=== PATIENT | male | born 1995 | race African-American/Black ===

== ENCOUNTER 2018-07-15 11:42 | Emergency (ER) | payer SELFPAY ==
[2018-07-15 11:48] VITALS: BP 115/65
--- NOTE | 2018-07-15 12:15 | ER Document Report ---
ED General - General Chief Complaint: Headache Stated Complaint: HEADACHE Time Seen by Provider: 07/15/18 12:06 Notes: Patient is a 22-year-old male with history of migraines that presents to the emergency department for chief complaint of headache. Patient states that while he was at work this morning, he started developing a bilateral frontal headache, that he rates as a 6 out of 10. He states he has a history of migraines, and this is similar to prior migraines in the past. He usually takes Motrin for his headaches, he did not take any medication prior to ED arrival. He denies noting any nausea, vomiting, abdominal pain, blurred vision , numbness, tingling or weakness in any extremity. Denies any other complaints at this time. Past Medical History: Migraines Past Surgical History: Hernia repair Social History: Admits to smoking cigarettes daily, denies alcohol or drug use Family History: Reviewed and noncontributory for presenting illness Allergies: Reviewed, see documented allergy list. REVIEW OF SYSTEMS: Other than noted above, the 12 point review of systems was reviewed with the patient and were negative, all pertinent findings are included in the HPI. PHYSICAL EXAMINATION: Vital signs reviewed, nursing noted reviewed. GENERAL: Well-appearing, well-nourished and in no acute distress. HEAD: Atraumatic, normocephalic. EYES: Eyes appear normal, extraocular movements intact, sclera anicteric, conjunctiva are normal. ENT: nares patent, oropharynx clear without exudates. Moist mucous membranes. NECK: Normal range of motion, supple without lymphadenopathy LUNGS: Breath sounds clear to auscultation bilaterally and equal. No wheezes rales or rhonchi. HEART: Regular rate and rhythm without murmurs ABDOMEN: Soft, nontender, normoactive bowel sounds. No rebound, guarding, or rigidity. No masses appreciated. EXTREMITIES: Nontender, good range of motion, no pitting or edema. NEUROLOGICAL: No focal neurological deficits. Moves all extremities spontaneously Motor and sensory grossly intact on exam. PSYCH: Normal mood, normal affect. SKIN: Warm, Dry, normal turgor, no rashes or lesions noted on exposed skin TRAVEL OUTSIDE OF THE [place] IN LAST 30 DAYS: No - Related Data Allergies/Adverse Reactions: No Known Allergies Allergy (Verified 07/15/18 11:43) Past Medical History - Social History Smoking Status: Current Every Day Smoker Frequency of alcohol use: None Drug Abuse: None Family History: Reviewed & Not Pertinent Patient has suicidal ideation: No Patient has homicidal ideation: No Neurological Medical History: Reports: Hx Migraine Renal/ Medical History: Denies: Hx Peritoneal Dialysis Past Surgical History: Reports: Hx Abdominal Surgery - hernia repair Physical Exam - Vital signs Vitals: Temp Pulse Resp BP Pulse Ox 98.5 F 59 L 16 115/65 99 07/15/18 11:46 07/15/18 11:46 07/15/18 11:46 07/15/18 11:46 07/15/18 11:46 Course - Re-evaluation Re-evalutation: Patient seen and examined vital signs reviewed. Patient was evaluated and treated as appropriate for the patient's presenting symptoms and complaint, with consideration of any critical or life threatening conditions that may be associated with their obtained history and exam as noted above. Patient was treated with Fioricet, IV fluids, Reglan and Toradol The patient was re-evaluated and was improved, headache had completely resolved. Evaluation was most consistent with headache, nonspecific, patient advised to follow-up with the primary care physician, and to return if he had any worsening of his symptoms. Plan of care was discussed with the patient at this point, after careful consideration I feel that that patient can be discharged from the emergency department, the patient was educated treatments and reasons to return to the emergency department based on their presumed diagnosis as noted above, they were advised to followup with a primary care physician in 2-3 days. Patient was agreeable to plan of care. *Note is created using voice recognition software and may contain spelling, syntax or grammatical errors. - Vital Signs Vital signs: Temp Pulse Resp BP Pulse Ox 98.5 F 59 L 16 115/65 99 07/15/18 11:46 07/15/18 11:46 07/15/18 11:46 07/15/18 11:46 07/15/18 11:46 Discharge - Discharge Clinical Impression: Headache Qualifiers: Headache type: unspecified Headache chronicity pattern: acute headache Intractability: not intractable Qualified Code(s): R51 - Headache Condition: Stable Disposition: HOME, SELF-CARE Instructions: Headache ([facility]) Additional Instructions: Please return to the emergency department if you have any worsening, or concern of your symptoms. Please return to the emergency department if you develop chest pain, difficulty breathing, severe abdominal pain, or ongoing vomiting. Please follow-up with your primary care physician in 2-3 days and any other recommended physicians. If prescribed, take all medications as directed. If you have any questions or concerns do not hesitate to return the emergency department for evaluation. Forms: Return to Work Referrals: JYOTI ALVARENGA MD [ACTIVE STAFF] - Follow up in 3-5 days (or your primary care. )
[2018-07-15] MEDS ORDERED: NORMAL SALINE 1000 ML 1,000 ML IV ONE (12:16)
[2018-07-15] MEDS ORDERED: METOCLOPRAMIDE HCL INJ/PF 10 MG/2 ML SDV IV ONE (12:16)
[2018-07-15] MEDS ORDERED: KETOROLAC TROMETHAMINE INJ/PF 30 MG/1 ML SDV IV ONE (12:16)
[2018-07-15] MEDS ORDERED: BUTALB/ACETAMINOPHEN/CAFFEINE 1 TAB EACH PO ONE (12:17)
== END 2018-07-15 13:17 | disposition home or self-care (01) ==
LOC: ER 11:42
DX: R51 Headache (principal); F17.210 Nicotine dependence, cigarettes, uncomplicated; Z86.69 Personal history of other diseases of the nervous system and sense organs
CPT/HCPCS: 99284; 96361; 96374; 96375; J3490; J1885; J2765; J7030